=== PATIENT | female | born 1980 | race Caucasian/White ===

== ENCOUNTER 2020-08-30 15:44 | Inpatient (IN) | payer OTHER ==
[2020-08-30 22:41] LABS: HGB 12.2 g/dl (12.5-16.0); MCH 30.4 pg (25.0-31.0); MCV 92.3 fL (78.0-100.0); MPV 9.5 fL (6.0-9.5); RBC 4.01 M/uL (4.20-5.40); RDW 13.5 % (11.5-14.0); WBC 14.7 K/uL (4.0-10.5)
[2020-08-30 23:03] LABS: URIC ACID 6.6 mg/dL (2.6-6.2)
[2020-08-31 02:35] LABS: BILIRUBIN NEGATIVE (NEGATIVE); BLOOD 2+ Ery/uL (NEGATIVE); COLOR YELLOW (YELLOW); GLUCOSE (U) NORMAL (NORMAL); LEUKOCYTES TRACE Leu/uL (NEGATIVE); NITRITE POSITIVE (NEGATIVE); PROTEIN 1+ mg/dL (NEGATIVE); SPECIFIC GRAVITY >=1.030 (1.001-1.030); UROBILINOGEN 0.2 mg/dL (0.2-1.0); pH 5.5 (5.0-9.0)
[2020-08-31 02:36] LABS: CLARITY HAZY (CLEAR)
[2020-08-31 02:41] LABS: BACTERIA 2+; SQUAMOUS EPITHELIAL CELLS RARE
[2020-08-31 02:54] LABS: PROTEIN:CREATININE 0.39 RATIO; URINE CREATININE 159.99 mg/dL (29.00-226.00); URINE TOTAL PROTEIN-RANDOM 62.8 mg/dL (<11.9)
[2020-08-31 05:27] LABS: HCT 33.9 % (37.0-47.0); HGB 11.3 g/dl (12.5-16.0); MCH 30.9 pg (25.0-31.0); MCHC 33.3 g/dL (32.0-36.0); MCV 92.6 fL (78.0-100.0); MPV 9.2 fL (6.0-9.5); RBC 3.66 M/uL (4.20-5.40); RDW 13.6 % (11.5-14.0); WBC 11.2 K/uL (4.0-10.5)
== END 2020-09-01 13:50 | disposition home or self-care (01) | DRG 807 ==
LOC: FOD 15:44 → FOB 15:45 → FOD 16:42 → FOB 16:43
PROVIDERS: Obstetrics & Gynecology; ADMIT Obstetrics & Gynecology
PROC: 10E0XZZ Delivery of Products of Conception, External Approach (ICD-10-PCS; principal; 2020-08-30)
DX: O99.214 Obesity complicating childbirth (principal); Z37.0 Single live birth; E66.9 Obesity, unspecified; Z3A.39 39 weeks gestation of pregnancy; Z88.0 Allergy status to penicillin; O11.5 Pre-existing hypertension with pre-eclampsia, complicating the puerperium; O10.93 Unspecified pre-existing hypertension complicating the puerperium
CPT/HCPCS: 36415; 81001; 82570; 83615; 84156; 84450; 84460; 84550; J2590